=== PATIENT | male | born 1980 | race Caucasian/White ===

== ENCOUNTER 2021-04-24 10:17 | Emergency (ER) | payer BC, SELFPAY ==
[2021-04-24 10:24] VITALS: BP 143/83; PULSE 117; RESP 20; TEMP 37.9; O2SAT 96
--- NOTE | 2021-04-24 10:37 | ED.URI ---
HPI - URI/Sore Throat General Chief Complaint: Upper Respiratory Infection Stated Complaint: congestion upper respiratory History of Present Illness HPI Narrative: This is a 40-year-old male that presents to the urgent care complaining of 2 weeks of cough and congestion with sinus pressure and needing to catch his breath if he goes into these coughing spells. Patient states that he has not had a fever but he is tired and just does not feel good. Related Data Home Medications Medication Instructions Recorded Confirmed losartan 50 mg PO DAILY 04/24/21 04/24/21 Allergies Allergy/AdvReac Type Severity Reaction Status Date / Time No Known Allergies Allergy Unverified 04/24/21 10:32 Review of Systems Review of Systems: CONSTITUTIONAL: Denies fever, chills, or sweats. ENT: Reports rhinorrhea, congestion, sore throat, or otalgia. RESPIRATORY: Reports cough or dyspnea. PMFSH Comments At time as signature, I have reviewed and agree with nursing past medical, social, surgical and family history. Please see nursing chart for further information. There is no relevant family history pertinent to the presenting complaint. Exam Narrative: GENERAL: Ill-appearing, well-nourished, and in no acute distress. HEAD:Normocephalic, atraumatic. EYES: PERRLA ENT: Nares clear, copious rhinorrhea Mucous membranes moist. CHEST: Clear to diminished auscultation. No respiratory distress. HEART: Tachycardic regular rate and rhythm. Normal peripheral pulses. ABDOMEN: Soft, nontender, nondistended, normal active bowel sounds. EXTREMITIES: Normal range of motion. No edema. SKIN: Warm, dry, no rash. NEURO: No focal deficits. Alert and oriented x3. Course Vital Signs Vital signs: Vital Signs Temperature 100.3 F H 04/24/21 10:24 Pulse Rate 117 H 04/24/21 10:24 Respiratory Rate 20 04/24/21 10:24 Blood Pressure 143/83 H 04/24/21 10:24 Pulse Oximetry 96 04/24/21 10:24 Temperature 100.3 F H 04/24/21 10:24 Pulse Rate 117 H 04/24/21 10:24 Respiratory Rate 20 04/24/21 10:24 Blood Pressure 143/83 H 04/24/21 10:24 Pulse Oximetry 96 04/24/21 10:24 MDM - URI/Sore Throat MDM Narrative Medical decision making narrative: negative for covid, negative for influenza Discharge Plan Discharge Clinical Impression: Bronchitis Fever Qualifiers: Fever type: unspecified Qualified Code(s): R50.9 - Fever, unspecified Patient Disposition: Home, Self-Care Condition: Stable Instructions: Antibiotic Form, Fever in Adults (ED), Chronic Bronchitis (ED), Hypertension (ED) Additional Instructions: Your blood pressure was elevated in the clinic today, please follow-up with your regular doctor for further evaluation and monitor for evaluation of hypertension Please [facility] schedule a followup visit with your personal physician with in the next 1-4 weeks for further evaluation and treatment. Also, ask your personal physician to assist you regarding blood pressure. Even blood pressure exceeding 120/80 may indicate pre-hypertension. If your symptoms persist, change or worsen significantly before you can contact your personal physician then please, without delay, go to the emergency department for further evaluation. Prescriptions: New albuterol sulfate 90 mcg/actuation HFA aerosol inhaler 1 inh inhalation QID PRN (Reason: shortness of breath or wheezing) Qty: 8.5 RF: 0 methylprednisolone [Medrol ([place])] 4 mg tablets,dose pack See Rx Instructions .ROUTE .COMPLEX Qty: 21 RF: 0 azithromycin [Zithromax Z-[place]] 250 mg tablet See Rx Instructions .ROUTE .COMPLEX Qty: 6 RF: 0 benzonatate 100 mg capsule 100 mg PO TID PRN (Reason: cough) Qty: 20 RF: 0 No Action losartan 50 mg tablet 50 mg PO DAILY RF: 0 Follow-up/Referrals: Enrique,Camryn Sherman MD [Primary Care Provider] - Stand Alone Forms: Work/School Release IP Time of Disposition: 11:07
== END 2021-04-24 11:10 | disposition home or self-care (01) ==
PROVIDERS: Emergency Provider Nurse Practitioner Family; PCP Family Medicine
DX: J40 Bronchitis, not specified as acute or chronic (principal); R50.9 Fever, unspecified; Z20.822 Contact with and (suspected) exposure to COVID-19; I10 Essential (primary) hypertension
CPT/HCPCS: 87426; 87804; 99203; C9803; G0463

== ENCOUNTER 2022-06-23 12:09 | Emergency (ER) | payer OTHER, SELFPAY ==
--- NOTE | ~2022-06-23 | XR_ITS ---
EXAMINATION: XR chest 2V 06/23/2022 13:13 INDICATION: Covid positive. Sore throat. PROCEDURE: 2 view chest COMPARISON: No prior studies for comparison. FINDINGS: The lungs are clear. The cardiomediastinal silhouette is within normal limits. There are no pleural effusions. There is no pneumothorax suspected. IMPRESSION: 1: NO ACUTE CARDIOPULMONARY DISEASE. Reviewed, dictated and finalized at location B. RAIT PAINTER
[2022-06-23 12:16] VITALS: BP 115/73; PULSE 101; RESP 20; TEMP 37.1; O2SAT 96
--- NOTE | 2022-06-23 13:00 | ED.URI ---
HPI - URI/Sore Throat General Chief Complaint: Upper Respiratory Infection Stated Complaint: Fever/Cough/Sore Throat Source: patient and RN notes reviewed History of Present Illness HPI Narrative: 41-year-old male presents to urgent care with complaints of sore throat, fevers, chills, and productive cough. Patient states 2 weeks ago he tested positive for COVID. Patient states he feels worse now than he did 2 weeks ago. Patient denies any shortness of breath or chest pain. Patient denies any vomiting, diarrhea, abdominal pain. Patient has been alternating ibuprofen and Tylenol for his fevers. Some parts of this dictation were generated by voice recognition software and may contain typographical and/or grammatical inaccuracies. Related Data Home Medications Medication Instructions Recorded Confirmed losartan 50 mg tablet 50 mg PO DAILY 04/24/21 04/24/21 atorvastatin 40 mg tablet mg 06/23/22 dulaglutide 0.75 mg/0.5 mL mg subcut 06/23/22 subcutaneous pen injector (Trulicity) empagliflozin 25 mg tablet mg 06/23/22 (Jardiance) metformin 1,000 mg tablet mg 06/23/22 Allergies Allergy/AdvReac Type Severity Reaction Status Date / Time No Known Allergies Allergy Unverified 04/24/21 10:32 Review of Systems Review of Systems: CONSTITUTIONAL: Reports fever, chills, and sweats. EYES: Denies visual changes, redness, or discharge. ENT: Reports sore throat CARDIOVASCULAR: Denies chest pain, palpitations, or edema. RESPIRATORY: Reports cough. denies dyspnea. GASTROINTESTINAL: Denies abdominal pain, nausea, vomiting, or diarrhea. GENITOURINARY: Denies dysuria or hematuria. SKIN: Denies rash or itching. MUSCULOSKELETAL: Denies back pain, joint pain, or myalgia. NEUROLOGIC: Denies headache, numbness, or weakness. PMFSH Comments At the time of my signature, I reviewed and agree with the nursing past medical, surgical, social, and family history. There is no relevant family history pertinent to the patient complaint. Exam Narrative: GENERAL: This is a well-nourished, well-developed patient, in no apparent distress. HEAD: normocephalic, atraumatic. EYES: PERRL. Sclera clear/white. Vision is grossly intact. EARS: External ears normal, auditory canals clear and without drainage, TMs normal without perforation. Hearing grossly intact. NOSE: External nose normal with no obvious nasal discharge, nares without redness, no rhinorrhea. THROAT: Mucous membranes moist, posterior pharynx clear. NECK: Mild lymphadenopathy CARDIOVASCULAR: Regular rate and rhythm without murmurs, gallops, or rubs. RESPIRATORY: Clear to auscultation. Breath sounds equal bilaterally. No wheezes, rales, or rhonchi. GASTROINTESTINAL: Abdomen soft, non-tender, nondistended. Bowel sounds are active. No hepato-splenomegaly, or palpable masses. No guarding. SKIN: warm, intact with no suspicious lesions or rash, good texture and turgor. NEURO: awake, alert, and oriented to person, place and time. There were no obvious focal neurologic abnormalities. Course Course Level of Care: Express Care Visit Vital Signs Vital signs: Vital Signs Temperature 98.7 F 06/23/22 12:16 Pulse Rate 101 H 06/23/22 12:16 Respiratory Rate 20 06/23/22 12:16 Blood Pressure 115/73 06/23/22 12:16 Pulse Oximetry 96 06/23/22 12:16 Oxygen Delivery Room Air 06/23/22 12:16 Temperature 98.7 F 06/23/22 12:16 Pulse Rate 101 H 06/23/22 12:16 Respiratory Rate 20 06/23/22 12:16 Blood Pressure 115/73 06/23/22 12:16 Pulse Oximetry 96 06/23/22 12:16 Oxygen Delivery Room Air 06/23/22 12:16 Reviewed MDM - URI/Sore Throat MDM Narrative Medical decision making narrative: Rapid strep is negative in the office; however we will send to the lab for confirmation; there is a small percentage chance that it can come back positive; if it is, we will call you in 2-3days; and your prescription will be call in to your pharmacy. However, there is NO indicat
== END 2022-06-23 13:33 | disposition home or self-care (01) ==
PROVIDERS: Emergency Provider Nurse Practitioner Family; PCP Family Medicine
DX: J02.9 Acute pharyngitis, unspecified (principal); B34.9 Viral infection, unspecified
CPT/HCPCS: 71046; 87081; 87880; 99213; G0463

== ENCOUNTER 2023-12-30 15:59 | Emergency (ER) | payer OTHER, SELFPAY ==
[2023-12-30 16:15] VITALS: BP 121/75; PULSE 77; RESP 20; TEMP 36.6; O2SAT 100
[2023-12-30 16:20] VITALS: BP 121/75; PULSE 77; RESP 20; TEMP 36.6; O2SAT 100
--- NOTE | 2023-12-30 16:50 | ED.GENADULT ---
HPI - General Adult General Chief complaint: Weakness Stated complaint: fatigue Time Seen by Provider: 12/30/23 16:32 Source: patient, RN notes reviewed and old records reviewed Mode of arrival: ambulatory Limitations: no limitations History of Present Illness HPI narrative: 43-year-old male to Express Care complaint of fatigue, exhaustion. Patient history of diabetes. Patient states that he is working 72+ hours per week with mandatory overtime and states he physically cannot continue working like this without time to rest. Patient reports no sick symptoms and endorses that I and O remain unchanged. Patient requesting work note so that he can go home and rest. Patient resting comfortably in exam room. Patient appears tired. Respirations even and nonlabored. Patient no acute distress. Related Data Home Medications Medication Instructions Recorded Confirmed losartan 50 mg tablet 50 mg PO DAILY 04/24/21 12/30/23 atorvastatin 40 mg tablet 40 mg PO DAILY 06/23/22 12/30/23 dulaglutide 0.75 mg/0.5 mL See Rx Instructions .Route .COMPLEX 06/23/22 12/30/23 subcutaneous pen injector (Trulicity) empagliflozin 25 mg tablet 25 mg PO DAILY 06/23/22 12/30/23 (Jardiance) Allergies Allergy/AdvReac Type Severity Reaction Status Date / Time No Known Allergies Allergy Unverified 12/30/23 16:09 Review of Systems Review of Systems: All systems reviewed & are unremarkable except as noted in HPI and below Constitutional: Constitutional: Reports as per HPI, Reports daytime sleepiness and Reports fatigue Eyes: Eyes: Reports no additional eye complaints ENT: Reports system reviewed and no additional complaints, except as documented Cardiovascular: Cardiovascular: Reports no additional cardiovascular complaints, Denies chest pain and Denies dyspnea Respiratory: Respiratory: Reports no additional respiratory complaints, Denies cough and Denies dyspnea Musculoskeletal: Musculoskeletal: Reports no additional musculoskeletal complaints Neurologic: Reports system reviewed and no additional complaints, except as documented Psychiatric: Psychiatric: Reports no additional psychiatric complaints PMFSH Comments At the time of my signature, I reviewed and agree with the nursing past medical, surgical, social, and family history. There is no relevant family history pertinent to the patient complaint. Exam Const: General: cooperative, healthy appearing, comfortable, no acute distress, alert, tired appearing and well nourished Nutritional Appearance: well nourished Orientation/consciousness: patient oriented x3 Limitations: no limitations HENMT: Head: normal to inspection Ears: external ears normal Face/Nose/Sinus: Normal external nose present, Normal nares present, normal facial exam, No erythema and No edema Face and sinus: normal facial exam, no erythema and no edema Mouth: Yes Normal oral and palatal mucosa present Eyes: General: appearance normal, both eyes and all related structures Neck: Neck: normal visual inspection, full ROM and no meningeal signs Lymphatic: no lymphadenopathy noted and no lymphedema noted Chest: Chest palpation & inspection: normal inspection of the chest Resp: Effort & Inspection: normal respiratory effort and able to speak in complete sentences Auscultation: clear to auscultation bilaterally Cardio: Jugular venous distension: no JVD Rate: regular rate Rhythm: regular rhythm Back/Spine/Pelvis: Cervical Spine: cervical ROM normal Skin: General skin exam: normal color, no rashes or lesions noted and turgor normal Neuro: General: patient oriented x3, gait normal, moves all extremities and no meningeal signs Speech: normal speech Gait exam (Neuro): Normal gait present Extrem: General: normal to inspection, full ROM and capillary refill normal Psych: Appearance: grossly normal and well kempt Course Course Emergency Course: Some parts of this dictation were generated by [employer]
== END 2023-12-30 17:05 | disposition home or self-care (01) ==
PROVIDERS: Emergency Provider Nurse Practitioner Family; PCP Nurse Practitioner Family
DX: R53.83 Other fatigue (principal); E78.00 Pure hypercholesterolemia, unspecified; I10 Essential (primary) hypertension; E11.9 Type 2 diabetes mellitus without complications
CPT/HCPCS: 99211; G0463

== ENCOUNTER 2024-05-31 09:19 | Outpatient (CLI) | payer OTHER, SELFPAY ==
--- OUTSIDE RECORDS SUMMARY | 2024-05-31 09:44 | XMS_ITS | Referral Summary ---
Author Organization [facility] [address] [facility] Address [address] [facility] [place] [address] Care Team Providers Care Feather Renovator Name Role Phone Camryn Nunez MD Primary Care Provider + Allergies No known active allergies Medications losartan (COZAAR) 50 mg tablet Take 50 mg by mouth daily 01/31/2022 Active atorvastatin (LIPITOR) 40 mg tablet Take 40 mg by mouth daily 04/07/2022 Active metFORMIN (GLUCOPHAGE) 1,000 mg tablet Take 1,000 mg by mouth 2 (two) times a day 04/07/2022 Active Active Problems No known active problems Social History Tobacco Use Types Packs/Day Years Used Date Smoking Tobacco: Never Assessed Sex and Gender Information Value Date Recorded Sex Assigned at Not on file Legal Sex Male 8:11 AM PANEL LAMINATOR Gender Identity Not on file Sexual Orientation Not on file Last Filed Vital Signs Vital Sign Reading Time Taken Comments Blood Pressure 126/76 05/06/2022 6:19 PM PANEL LAMINATOR Pulse 102 05/06/2022 6:19 PM PANEL LAMINATOR Temperature 36.8 ??C (98.3 ??F) 05/06/2022 6:19 PM CS T Respiratory Rate 16 05/06/2022 6:19 PM PANEL LAMINATOR Oxygen Saturation 98% 05/06/2022 6:19 PM PANEL LAMINATOR Inhaled Oxygen Concentration - - Weight 114.7 kg (252 lb 12.8 oz) 05/06/2022 6:19 PM PANEL LAMINATOR Height 180.3 cm (5' 11 ) 05/06/2022 6:19 PM PANEL LAMINATOR Body Mass Index 35.26 05/06/2022 6:19 PM PANEL LAMINATOR Plan of Treatment Not on file Insurance [employer] Member Subscriber Plan / Payer (Ef fective 2022-Present) Name:Willi Harman Relation to Subscriber:Spouse Name:SPENSER HARMAN Date of :1982 (Home) Address: [address] [place] [address] Payer ID:[id number] (NAIC) Type:[employer] H[employer]/PPO Address: [place] [id number] [employer] Member Subscriber Plan / Payer (Ef fective 2022-Present) Name:Willi Harman Relation to Subscriber:Spouse Name:SPENSER HARMAN Date of :1982 (Home) Address: [address] [place] [address] Payer ID:[id number] (NAIC) Type:[employer]/PPO Address: [place] [phone] Care Teams Feather Renovator Relationship Specialty Start Date End Date Camryn Nunez MD [address] [place] [address] DR TIAN [address] [place] [id number] PCP - General Family Medicine 05/06/22
--- OUTSIDE RECORDS SUMMARY | 2024-05-31 09:44 | XMS_ITS | Patient Health Summary ---
Author Organization [facility] Address [address] [place] [address] Care Team Providers Care Heart Specialist Name Role Phone Cesar Wagoner MD Primary Care Provider Note from [facility],non-owned Affiliates and Associated Physician Practices is amultiple site organization consisting of ambulatory clinics and hospital sitesin [place], [place], [place] and [place]. This disclosure is being madepursuant to the Care Everywhere program and may not contain all information available regarding this patient. Last updated 18.[facility] Allergies No known active allergies Medications * Be aware that medications may not be up to date on this document. Alwaysverify current medications with the patient. * amoxicillin-clavulanate (AUGMENTIN) 875-125 MG tablet(Started 07/30/2013) Take 1 Tab by mouth every 12 hours. * oxyCODONE-acetaminophen (PERCOCET) 5-325 MG tablet(Started 07/30/2013) Take 1 Tab by mouth every 4 hours as needed for Pain. Immunizations * TDAP (7yrs+)(Given 07/30/2013) Social History Tobacco Use Types Packs/Day Years Used Date Smoking Tobacco: Never Alcohol Use Standard Drinks/Week Comments No 0 (1 standard drink = 0.6 oz pur e alcohol) Sex and Gender Information Value Date Recorded Sex Assigned at Not on file Gender Identity Not on file Sexual Orientation Not on file Last Filed Vital Signs Vital Sign Reading Time Taken Comments Blood Pressure 128/98 07/31/2013 12:00 AM CDT Pulse 98 07/31/2013 12:00 AM CDT Temperature 36.7 ??C (98 ??F) 07/31/2013 12:00 AM CDT Respiratory Rate 18 07/31/2013 12:00 AM CDT Oxygen Saturation 100% 07/31/2013 12:00 AM CDT Inhaled Oxygen Concentration - - Weight 102.1 kg (225 lb) 07/30/2013 8:59 PM CDT Height 182.9 cm (6') 07/30/2013 8:59 PM CDT Body Mass Index 30.52 07/30/2013 8:59 PM CDT Care Teams Heart Specialist Relationship Specialty Start Date End Date Cesar Wagoner MD [address] [place] [address] PCP - General Family Medicine 07/30/13
--- OUTSIDE RECORDS SUMMARY | 2024-05-31 09:44 | XMS_ITS | Clinical Summary ---
Author Organization [facility] Address [address] [place] [address] Care Team Providers Care Executive Officer Special Warfare Team Name Role Phone Cesar Wagoner MD Primary Care Provider [phone] Source Comments [facility],non-owned Affiliates and Associated Physician Practices is amultiple site organization consisting of ambulatory clinics and hospital sitesin [place], [place], [place] and [place]. This disclosure is being madepursuant to the Care Everywhere program and may not contain all information available regarding this patient. Last updated 18.[facility] Lorena Gaxiola Allergies No known active allergies Medications * Be aware that medications may not be up to date on this document. Alwaysverify current medications with the patient. Medication Sig Dispensed Refills Start Date End Date Status amoxicillin-clavulanat e (AUGMENTIN) 875-125 MG tablet Take 1 Tab by mouth every 12 hours. 14 Tab 0 07/30/2013 Active oxyCODONE-acetaminophe n (PERCOCET) 5-325 MG tablet Take 1 Tab by mouth every 4 hours as needed for Pain. 15 Tab 0 07/30/2013 Active Immunizations Name Administration Dates Next Due TDAP (7yrs+) 07/30/2013 Social History Tobacco Use Types Packs/Day Years [...] Mass Index 30.52 07/30/2013 8:59 PM CDT Plan of Treatment Health Maintenance Due Date Last Done Comments LIPID TESTING 1980 HIV SCREENING 12/05/1995 HEPATITIS C SCREENING 11/30/1998 HEPATITIS B VACCINE (1 of 3 - 19+ 3-dose series) 12/05/1999 DTAP/TDAP/TD VACCINES (2 - T d or Tdap) 07/31/2023 07/30/2013 COVID-19 VACCINE (1 - 2023-2 5 season) 2024 INFLUENZA VACCINE (#1) 2024 DEPRESSION SCREENING 05/04/2024 ZOSTER VACCINE (1 of 2) 2030 HIB VACCINE Aged Out No longer eligi ble based on patient's age to complete this topic HPV VACCINE Aged Out No longer eligi ble based on patient's age to complete this topic MENINGOCOCCAL (Group B) VACCINE Aged Out No longer eligible based on patient's age to complete this topic MENINGOCOCCAL VACCINE Aged Out No aníbal marcello eligible based on patient's age to complete this topic PNEUMOCOCCAL VACCINE Aged Out No long er eligible based on patient's age to complete this topic Care Teams Executive Officer Special Warfare Team Relationship Specialty Start Date End Date Cesar Wagoner MD [address] [place] [address] PCP - General Family Medicine 07/30/13
--- OUTSIDE RECORDS SUMMARY | 2024-05-31 09:44 | XMS_ITS | Clinical Summary ---
Author Organization [facility] Address [address] [place] [address] Phone Care Team Providers Care Lab Aid Name Role Phone Camryn Nunez MD Primary Care Provider + Allergies No known active allergies Medications No known medications Active Problems No known active problems Social History Tobacco Use Types Packs/Day Years Used Date Smoking Tobacco: Never Assessed Sex and Gender Information Value Date Recorded Sex Assigned at Not on file Legal Sex Male 8:55 PM CDT Gender Identity Not on file Sexual Orientation Not on file Plan of Treatment Health Maintenance Due Date Last Done Comments Hepatitis C Virus (HCV) Screening 1980 TdaP Immunization 1980 Hepatitis B Immunization (1 of 3 - 19+ 3-dose series) 12/05/1999 Influenza Immunization (#1) 2024 SARS-COV-2 Immunization ( season) 2024 Respiratory Syncytial Virus (RSV) Immunization (Adult) (1 - 1-dose 75+ series) 12/05/2055 Meningococcal Immunization (ACWY) Aged Out No longer eligible based on patient's age to complete this topic Pneumococcal Immunization Combined Aged Out No longer eligible based on patient's age to complete this topic Rotavirus Immunization Aged Out No lo nger eligible based on patient's age to complete this topic Insurance [employer] Care Teams Lab Aid Relationship Specialty Start Date End Date Camryn Nunez MD [address] [place] [id number] PCP - General Family Medicine 04/26/15
--- OUTSIDE RECORDS SUMMARY | 2024-05-31 09:44 | XMS_ITS | Clinical Summary ---
Author Organization [facility] [address] [facility] Address [address] [place] [facility] [place] [address] Care Team Providers Care Improvement Leader Name Role Phone Camryn Nunez MD Primary [...] on file Legal Sex Male 8:11 AM RN PICU Gender Identity Not on file Sexual Orientation Not on file Obstetrics History Last Filed Vital Signs Vital Sign Reading Time Taken Comments Blood Pressure 126/76 05/06/2022 6:19 PM RN PICU Pulse 102 05/06/2022 6:19 PM RN PICU Temperature 36.8 ??C (98.3 ??F) 05/06/2022 6:19 PM CS T Respiratory Rate 16 05/06/2022 6:19 PM RN PICU Oxygen Saturation 98% 05/06/2022 6:19 PM RN PICU Inhaled Oxygen Concentration - - Weight 114.7 kg (252 lb 12.8 oz) 05/06/2022 6:19 PM RN PICU Height 180.3 cm (5' 11 ) 05/06/2022 6:19 PM RN PICU Body Mass Index 35.26 05/06/2022 6:19 PM RN PICU Plan of Treatment Health Maintenance Due Date Last Done Comments Depression Screening 1980 Hepatitis C Screening 1980 Varicella Vaccines (1 of 2 - 13+ 2-dose series) 1993 Hepatitis B Screening 1998 Regular Well Visit/Exam 18-64 1998 Covid-19 Vaccine (3 - 2023- season) 2024 06/14/2021, 07/09/2020 Influenza Vaccine (#1) 2024 , 02/24/2020, 02/24/2020, Additional history exists DTaP/Tdap/Td Vaccine (3 - Td or Tdap) 12/22/2030 12/22/2020, 07/30/2013 HPV Vaccines Aged Out No longer eligi ble based on patient's age to complete this topic Pneumococcal vaccine <65 Aged Out No longer eligible based on patient's age to complete this topic Insurance [facility] [employer] [employer] Care Teams Improvement Leader Relationship Specialty Start Date End Date Camryn Nunez MD [address] [address] PCP - General Family Medicine 05/06/22
--- OUTSIDE RECORDS SUMMARY | 2024-05-31 09:44 | XMS_ITS | Clinical Summary ---
Author Organization [facility] Address [address] [place] [address] Phone Care Team Providers Care Forging Press Lever Tender Name Role Phone Camryn Nunez MD Primary Care Provider + Allergies No known active allergies Medications LISINOPRIL ORAL Take 50 mg by mouth daily. Active Immunizations Immunization Administration Dates Next Due (ADACEL/BOOSTRIX)(10 YR UP) TDAP VACCINE, 0.5ML, IM 12/22/2020 Social History Tobacco Use Types Packs/Day Years Used Date Smoking Tobacco: Never Smokeless Tobacco: Never Alcohol Use Standard Drinks/Week Comments Not Currently 0 (1 standard drink = 0.6 oz pur e alcohol) Sex and Gender Information Value Date Recorded Sex Assigned at Not on file Legal Sex Male 1:37 PM CDT Gender Identity Not on file Sexual Orientation Not on file Last Filed Vital Signs Vital Sign Reading Time Taken Comments Blood Pressure 117/66 12/22/2020 3:31 PM CDT Pulse - - Temperature 36.6 ??C (97.8 ??F) 12/22/2020 1:44 PM CD T Respiratory Rate 15 12/22/2020 3:31 PM CDT Oxygen Saturation 94% 12/22/2020 3:31 PM CDT Inhaled Oxygen Concentration - - Weight 113.9 kg (251 lb) 12/22/2020 1:44 PM CDT Height 180.3 cm (5' 11 ) 12/22/2020 1:44 PM CDT Body Mass Index 35.01 12/22/2020 1:44 PM CDT Plan of Treatment Health Maintenance Due Date Last Done Comments HEPATITIS B VACCINES (1 of 3 - 19+ 3-dose series) 12/05/1999 INFLUENZA VACCINE (#1) 2023 , 02/05/2018 DTAP/TDAP/TD VACCINES (3 - T d or Tdap) 12/22/2030 12/22/2020, 07/30/2013 HPV VACCINES Aged Out No longer eligi ble based on patient's age to complete this topic PNEUMOCOCCAL VACCINE 0-64 YEARS Aged Out No longer eligible b ased on patient's age to complete this topic [place] [address] [employer] Care Teams Forging Press Lever Tender Relationship Specialty Start Date End Date Camryn Nunez MD [address] [place] [phone] PCP - General Family Practice 12/22/20
--- OUTSIDE RECORDS SUMMARY | 2024-05-31 09:44 | XMS_ITS | Referral Summary ---
Author Organization [facility] Address [address] [place] [address] Care Team Providers Care System Configuration Specialist Name Role Phone Cesar Wagoner MD Primary Care Provider [phone] Source Comments [facility],non-owned Affiliates and Associated Physician Practices is amultiple site organization consisting of ambulatory clinics and hospital sitesin [place], [place], [place] and [place]. This disclosure is being madepursuant to the Care Everywhere program and may not contain all information available regarding this patient. Last updated 18.[facility] [employer] Allergies No known active allergies Medications * [...] 07/30/2013 8:59 PM CDT Plan of Treatment Not on file Care Teams System Configuration Specialist Relationship Specialty Start Date End Date Cesar Wagoner MD [address] [place] [address] PCP - General Family Medicine 07/30/13
[2024-05-31 19:40] LABS: Hematocrit 55.5 % (42.0-52.0); Hemoglobin 17.9 g/dL (14.0-18.0); Mean Corpuscular HGB Conc 32.3 g/dl (32-36); Mean Corpuscular Hemoglobin 28.9 pg (26-34); Mean Corpuscular Volume 89.7 fl (80-100); Mean Platelet Volume 11.4 fl (7.4-10.4); Platelet Count Result 201 k/mm3 (150-375); Red Blood Count 6.19 M/mm3 (4.6-6.20); Red Cell Distribution Width 13.8 % (11.5-14.5); White Blood Count 10.4 K/mm3 (4.5-10.0)
[2024-05-31 20:57] LABS: Hemoglobin A1C 6.3 % (<5.7)
[2024-05-31 21:26] LABS: Vitamin D 25 Hydroxy 49.3 ng/mL
[2024-05-31 23:06] LABS: Alanine Aminotransferase 31 U/L (6-50); Albumin Level 4.8 g/dL (3.5-5.1); Alkaline Phosphatase 116 U/L (38-126); Anion Gap 13 mmol/L (4-12); Aspartate Amino Transferase 33 U/L (17-59); Bilirubin,Total 0.8 mg/dL (0.2-1.3); Blood Urea Nitrogen 20 mg/dL (9-20); Calcium 10.1 mg/dL (8.4-10.2); Carbon Dioxide 26 mmol/L (22-30); Chloride 103 mmol/L (98-107); Cholesterol 178 mg/dL (0-200); Estimated Glomerular Filt Rate > 60; Glucose 100 mg/dL (65-110); HDL Direct 51 mg/dL; Potassium 4.4 mmol/L (3.4-5.0); Sodium 142 mmol/L (137-145); Triglycerides 280 mg/dL (<150)
[2024-05-31 23:07] LABS: Creatinine Urine 65.6 mg/dL
[2024-05-31 23:11] LABS: MALB Creatinine Ratio 20.1 mg/g (0-30); Microalbumin Urine Random 13.2 mg/L (0-16.7)
[2024-05-31 23:17] LABS: LDL Cholesterol Direct 80 mg/dL
== END 2024-05-31 09:20 | disposition home or self-care (01) ==
PROVIDERS: PCP Nurse Practitioner Adult Health; Visit Provider Nurse Practitioner Adult Health
DX: R79.89 Other specified abnormal findings of blood chemistry (principal); E11.9 Type 2 diabetes mellitus without complications; I10 Essential (primary) hypertension; E55.9 Vitamin D deficiency, unspecified
CPT/HCPCS: 36415; 80053; 80061; 82043; 82306; 82565; 83036; 84402; 84403; 85027

== ENCOUNTER 2024-09-09 08:26 | Emergency (ER) | payer OTHER, SELFPAY ==
--- OUTSIDE RECORDS SUMMARY | 2024-09-09 08:28 | XMS_ITS | Clinical Summary ---
Author Organization [facility] Address [address] [place] [address] Care Team Providers Care Coat Finisher Name Role Phone Cesar Wagoner MD Primary Care Provider [phone] Source Comments [facility],non-owned Affiliates and Associated Physician Practices is amultiple site organization consisting of ambulatory clinics and hospital sitesin [place], [place], [place] and [place]. This disclosure is being madepursuant to the Care Everywhere program and may not contain all information available regarding this patient. Last updated 18.[facility] Allergies No known active allergies Medications * Be aware that medications may not be up to date on this document. Alwaysverify current medications with the patient. amoxicillin-clav ulanate (AUGMENTIN) 875-125 MG tablet Take 1 Tab by mouth every 12 hours. 14 Tab 0 07/30/2013 Active oxyCODONE-acetam inophen (PERCOCET) 5-325 MG tablet Take 1 Tab by mouth every 4 hours as needed for Pain. 15 Tab 0 07/30/2013 Active Immunizations Immunization Administration Dates Next Due TDAP (7yrs+) 07/30/2013 Social History Tobacco Use Types Packs/Day Years Used Date Smoking Tobacco: Never Alcohol Use Standard Drinks/Week Comments No 0 (1 standard drink = 0.6 oz pur e alcohol) Sex and Gender Information Value Date Recorded Sex Assigned at Not on file Legal Sex Male 8:38 PM CDT Gender Identity Not on file Sexual Orientation Not on file Last Filed Vital Signs Vital Sign Reading Time Taken Comments Blood Pressure 128/98 07/31/2013 12:00 AM CDT Pulse 98 07/31/2013 12:00 AM CDT Temperature 36.7 C (98 F) 07/31/2013 12:00 AM CDT Respiratory Rate 18 [...] d or Tdap) 07/31/2023 07/30/2013 COVID-19 VACCINE ( - 2023-2 5 season) 2024 DEPRESSION SCREENING 05/04/2024 INFLUENZA VACCINE (Season Ended) 2025 ZOSTER VACCINE (1 of 2) 2030 HIB VACCINE Aged Out No longer eligi ble based on patient's age to complete this topic HPV VACCINE Aged Out No longer eligi ble based on patient's age to complete this topic MENINGOCOCCAL (Group B) VACC INE SHARED DECISION-MAKING Aged Out No longer eligibl e based on patient's age to complete this topic MENINGOCOCCAL GROUPS A/C/Y/W VACCINE Aged Out No longer eligible b ased on patient's age to complete this topic PNEUMOCOCCAL VACCINE Aged Out No long er eligible based on patient's age to complete this topic Insurance [employer] Care Teams Coat Finisher Relationship Specialty Start Date End Date Cesar Wagoner MD [address] [place] [id number] PCP - General Family Medicine 07/30/13
--- OUTSIDE RECORDS SUMMARY | 2024-09-09 08:28 | XMS_ITS | Clinical Summary ---
Author Organization [facility] Address [address] [place] [address] Phone Care Team Providers Care Tea Bag Packer Name Role Phone Camryn Nunez MD Primary [...] PM CDT Pulse - - Temperature 36.6 C (97.8 F) 12/22/2020 1:44 PM CDT Respiratory Rate 15 12/22/2020 3:31 PM CDT [...] 3-dose series) 12/05/1999 INFLUENZA VACCINE (#1) 2023 0, 02/05/2018 DTAP/TDAP/TD VACCINES (3 - Td or Tdap) 12/22/2030 12/22/2020, 07/30/2013 HPV VACCINES Aged Out No longer eligi ble based on patient's age to complete this topic Insurance [facility] BL[facility] ACCESS CHOICE Care Teams Tea Bag Packer Relationship Specialty Start Date End Date Camryn Nunez MD [address] [place] [address] [place] [address] PCP - General Family Practice 12/22/20
--- OUTSIDE RECORDS SUMMARY | 2024-09-09 08:28 | XMS_ITS | Clinical Summary ---
Author Organization [facility] Address [address] [place] [address] Phone Care Team Providers Care Relocation Associate Name Role Phone Camryn Nunez MD Primary [...] patient's age to complete this topic Insurance [facility] Care Teams Relocation Associate Relationship Specialty Start Date End Date Camryn Nunez MD [address] [place] [id number] PCP - General Family Medicine 04/26/15
--- OUTSIDE RECORDS SUMMARY | 2024-09-09 08:28 | XMS_ITS | Referral Summary ---
Author Organization [facility] [address] [facility] [address] Address [address] [place] [address] Care Team Providers Care Computer Repair Engineer Name Role Phone Camryn Nunez MD Primary [...] on file Legal Sex Male 8:11 AM COOK ROOM SUPERVISOR Gender Identity Not on file Sexual Orientation Not on file Last Filed Vital Signs Vital Sign Reading Time Taken Comments Blood Pressure 126/76 05/06/2022 6:19 PM COOK ROOM SUPERVISOR Pulse 102 05/06/2022 6:19 PM COOK ROOM SUPERVISOR Temperature 36.8 C (98.3 F) 05/06/2022 6:19 PM COOK ROOM SUPERVISOR Respiratory Rate 16 05/06/2022 6:19 PM COOK ROOM SUPERVISOR Oxygen Saturation 98% 05/06/2022 6:19 PM COOK ROOM SUPERVISOR Inhaled Oxygen Concentration - - Weight 114.7 kg (252 lb 12.8 oz) 05/06/2022 6:19 PM COOK ROOM SUPERVISOR Height 180.3 cm (5' 11 ) 05/06/2022 6:19 PM COOK ROOM SUPERVISOR Body Mass Index 35.26 05/06/2022 6:19 PM COOK ROOM SUPERVISOR Plan of Treatment Not on file Insurance [facility] [employer] [place] [id number] Care Teams Computer Repair Engineer Relationship Specialty Start Date End Date Camryn Nunez MD [address] [place] [address] [address] [place] [id number] PCP - General Family Medicine 05/06/22
--- OUTSIDE RECORDS SUMMARY | 2024-09-09 08:28 | XMS_ITS | Data Portability ---
Author Organization [facility], Main Office Address [address] [place] [address] Assessment No assessment recorded. Plan of Treatment Reminders Order Date Submit Date Provider Last Modified By Organization Details Last Modified Time Details Appointments None recorded. Lab vitamin D, 25-hydroxy, total, serum 2023 024 [facility] (Lab), [address] [place], [address], 4 03:08:27 vitamin B12 + folate, serum or blood 2023 024 [facility] (Lab), [address] [place], [address], 4 03:08:25 testosteron e, total, serum 2023 024 [facility] (Lab), [address] [place], [address], 4 03:08:28 glycohemogl obin, total, blood 2023 024 [facility] (Lab), [address] [place], [address], 4 16:46:41 HbA1c (hemoglobin A1c), blood 2022 023 [email or web address] [facility], [address], [place], [address], 3 08:07:44 Referral None recorded. Procedures None recorded. Surgeries None recorded. Imaging None recorded. Medication Orders Vitamin D3 50 mcg (2,000 unit) capsule 2023 [facility], [address] [place] [address], [address], 4 15:40:26 Trulicity 1.5 mg/0.5 mL subcutaneou s pen injector 2023 024 [facility], [address] [place], [address], 4 15:40:25 testosteron e cypionate 200 mg/mL intramuscul ar oil 2023 024 [facility], [address] [place] [address], [address], 4 15:40:27 Trulicity 1.5 mg/0.5 mL subcutaneou s pen injector 2023 024 [facility], [address] [place] [address], [address], 4 12:36:33 Ozempic 0.25 mg or 0.5 mg (2 mg/1.5 mL) subcutaneou s pen injector 2022 023 [email or web address] [facility], [address] [place] [address], [address], 4 17:35:03 Patient TargetsNo targets recorded. Patient InstructionsNo instructions recorded. Reason for Referral None Reported. Results Created Date Observation Date Name Description Value Unit Range Abnormal Flag Note LastModifiedBy Organization Detail LastModifiedTime 08/16/19 23 08/16/2022 HEMOG LOBIN A1C hemoglobin A1C 6.3 %_of_ total _HGB <5.7 high For someo ne witho ut known diabe calli, a hemog lobin A1c value betwe en 5.7% and 6.4% is consi stent with predi abete s and shoul d be confi rmed with a follo w-up test. For someo ne with known diabe calli, a value <7% indic ates that their diabe calli is well contr olled . A1c targe ts shoul d be indiv idual ized based on durat ion of diabe calli, age, comor bid condi tions , and other consi derat ions. This assay resul t is consi stent with an incre ased risk of diabe calli. Curre ntly, no conse nsus exist s regar ding use of hemog lobin A1c for diagn osis of diabe calli for child yazmin. Not Available [employer] [facility] [address] [place], [address], 08/16/2022 02:39:36 08/06/19 24 08/07/2023 VITAM IN B12 AND FOLAT E vitamin B12 438 pg/mL 232-12 45 Not Available [facility] ([facility]) [address] [facility], [place], [address], 08/13/2023 03:08:25 08/06/19 24 08/07/2023 VITAM IN B12 AND FOLAT E folate (folic acid), serum 7.7 NG/mL >3.0 A serum folat e rizwan ntrat ion of less than 3.1 ng/mL is consi dered to repre sent clini durga defic iency . Not Available [facility] ([facility]) [address] [facility], [place], [address], 08/13/2023 03:08:25 08/06/19 24 08/07/2023 HEMOG LOBIN A1C hemoglobin A1C 8.7 % 4.8-5. 6 above high normal Predi abete s: 5.7 - 6.4 Diabe calli: >6.4 Glyce cherie contr ol for adult s with diabe calli: <7.0 Not Available [facility] ([facility]) [address] [facility], [place], [address], 08/13/2023 03:08:26 08/06/19 24 08/07/2023 VITAM IN D, 25-HY DROXY vitamin D, 25-hydroxy 10.0 NG/mL 30.0-1 00.0 below low normal Vitam in D defic iency has been defin ed by the Insti tute of Medic ine and an Endoc rine Socie ty pract ice guide line as a level of serum 25-OH vitam in D less than 20 ng/mL (1,2) . The Endoc rine Socie ty went on to furth er defin e vitam in D insuf ficie ncy as a level betwe en 21 and 29 ng/mL (2). 1. IOM (Inst itute of Medic ine). 2009. Dieta ry refer ence intak es for calci um and D. Sakshi villarreal [place]: The [facility] . 2. Keena milton MF, Fátima krishnamurthy [place], Bebeto off-F errar i BEAR, et al. Evalu ation , treat ment, and preve ntion of vitam in D defic iency : an Endoc rine Socie ty clini durga pract ice guide line. JCEM. 2010; 96(7) :1911 -30. Not Available [facility] ([facility]) [address] [facility], [place], [address], 08/13/2023 03:08:27 08/06/19 24 08/12/2023 TESTO STERO NE, TOTAL , LC/MS testosterone , total, lc/MS 230 NG/dL below low normal This test was devel oped and its perfo rmanc e brigette cteri stics deter mined by [facility]. It has not been clear ed or appro ivonne by the Food and Drug Admin istra tion. Refer ence Range : Adult Males >18 years 264 - 916 This [facility] rp LC/MS -MS metho d is curre ntly certi fied by the CDC Hormo ne Stand ardiz ation Progr am (HoST ). Adult male refer ence inter leo is based on a popul ation of healt hy nonob usman males (BMI <3 0) betwe en 19 and 39 years old. Barbara giron et.al . JCEM 2017, 102;1 161-1 173 PMID: 11047 103. Not Available [employer] [facility] [address] [facility], [place], [address], 08/13/2023 03:08:28 02/24/2002/25/2024 HEMOG LOBIN A1C hemoglobin A1C 8.6 % 4.8-5. 6 above high normal Predi abete s: 5.7 - 6.4 Diabe calli: >6.4 Glyce cherie contr ol for adult s with diabe calli: <7.0 Not Available [facility] ([facility]) [address] [facility], [place], [address], 02/25/2024 10:37:05 02/24/2002/25/2024 TESTO STERO NE testosterone 243 NG/dL 264-91 6 below low normal Adult male refer ence inter leo is based on a popul ation of healt hy nonob usman males (BMI <30) betwe en 19 and 39 years old. Barbara giron et.al . JCEM 2017, 102;1 161-1 173. PMID: 35777 103. Not Available [facility] ([facility]) [address] [facility], [place], [address], 02/25/2024 10:37:06 Result Notes None recorded. Problems Name Problem SNOMED Code Status Onset Date Resolution Date Notes Provider Name and Address Organization Details Recorded Time Bipolar disorder 34872980 Active Not Available [facility] 3 16:59:10 Headache 10179967 Active Not Available [facility] 3 16:59:11 Increased liver function 63070004 Active Not Available [employer] 3 16:59:11 Hyperglycemia 01924850 Active Not Available [facility] 3 16:59:11 Diabetes mellitus 16806143 Active 2022 ROSAMARIA Franklin [address] [facility], [facility] [address], [place], [address] , [facility] [employer] [facility] 3 08:41:53 Testosterone level below reference range 926884045 Active 2023 MANASA [facility]inoP[facility] [address], [place], [address] , [employer] 4 15:19:25 Vitamin D deficiency 95117621 Active 2023 MANASA AndinoP-C [address], [address], [place], [address] , [employer] 4 15:20:28 Male hypogonadism 02478492 Active 2023 MANASA AndinoP[facility] [address] [facility], [facility] [address], [place], [address] , [employer] 4 16:05:56 Problem Notes None recorded. Procedures Surgical History Date Name Laterality Status Provider Name and Address Organization Details Recorded Time excision of ganglion cyst completed Not Available [facility] 07/02/2022 16:57:30 Imaging Results None recorded. Procedure Notes None recorded. Medical Equipment None Reported. Allergies No known drug allergies Medications Name Sig Start Date Stop Date Status Note LastModified by Organization Details LastModified Time Prescriptio n - Prior Authorizati on Request active Not Available Not Available N ot Available losartan 50 mg tablet Take 1 tablet by mouth once daily active Not Available Not Available No t Available atorvastati n 40 mg tablet Take 1 tablet by mouth once daily active Not Available Not Available No t Available promethazin e-DM 6.25 mg-15 mg/5 mL oral syrup Take 5 mL every 4 hours by oral route as needed for 7 days. 12/10 completed Not Available Not Available Not Available venlafaxine ER 37.5 mg capsule,ext ended release 24 hr TAKE 1 CAPSULE BY MOUTH EVERY DAY 12/10 completed Not Available Not Available Not Available venlafaxine ER 75 mg capsule,ext ended release 24 hr 01/15 completed Not Available Not Available Not Available doxycycline hyclate 100 mg capsule Take 1 capsule twice a day by oral route for 7 days. active Not Available Not Available No t Available azithromyci n 250 mg tablet TAKE 2 TABLETS (500 MG) BY ORAL ROUTE ONCE DAILY FOR 1 DAY THEN 1 TABLET (250 MG) BY ORAL ROUTE ONCE DAILY FOR 4 DAYS 08/22 completed Not Available Not Available Not Available benzonatate 200 mg capsule Take 1 capsule 3 times a day by oral route as needed. active Not Available Not Available No t Available hydrocodone 5 mg-acetamin ophen 325 mg tablet 01/17 completed Not Available Not Available Not Available prednisone 20 mg tablet Take 2 tablets every day by oral route for 5 days with food in AM active Not Available Not Available No t Available olanzapine 5 mg tablet TAKE 1 TABLET BY MOUTH EVERY DAY 12/10 completed Not Available Not Available Not Available penicillin V potassium 500 mg tablet TAKE 1 TABLET BY MOUTH THREE TIMES DAILY 05/23 completed Not Available Not Available Not Available sulfamethox azole 800 mg-trimetho prim 160 mg tablet TAKE 1 TABLET BY MOUTH TWICE DAILY FOR 10 DAYS 05/23 completed Not Available Not Available Not Available tramadol 50 mg tablet Take 1 tablet 3 times a day by oral route for 10 days. 10/12 completed Not Available Not Available Not Available oxycodone-a cetaminophe n 5 mg-325 mg tablet 08/10 completed Not Available Not Available Not Available amoxicillin 875 mg tablet Take 1 tablet every 12 hours by oral route for 10 days. active Not Available Not Available No t Available Deep Sea Nasal 0.65 % spray aerosol USE 2 SPRAYS NASALLY PRN FOR 15 DAYS 12/10 completed Not Available Not Available Not Available methocarbam ol 750 mg tablet Take 1 tablet 3 times a day by oral route. active Not Available Not Available No t Available benzonatate 100 mg capsule TAKE 1 CAPSULE BY MOUTH THREE TIMES DAILY NEEDED FOR COUGH 05/23 completed Not Available Not Available Not Available cephalexin 500 mg capsule TAKE 1 CAPSULE BY MOUTH THREE TIMES DAILY FOR 10 DAYS 05/23 completed Not Available Not Available Not Available metformin 1,000 mg tablet TAKE 1 TABLET BY MOUTH TWICE DAILY active Not Available Not Available No t Available divalproex ER 500 mg tablet,exte nded release 24 hr 08/10 completed Not Available Not Available Not Available losartan 25 mg tablet TAKE 1 TABLET BY MOUTH EVERY DAY 12/10 completed Not Available Not Available Not Available BD Luer-Mae Syringe 3 mL 25 gauge x 1 active Not Available Not Available Not Available gabapentin 300 mg capsule Take 1 capsule twice a day by oral route for 30 days. active Not Available Not Available No t Available diclofenac sodium 75 mg tablet,filomena yed release Take 1 tablet twice a day by oral route for 15 days. active Not Available Not Available No t Available codeine 10 mg-guaifene sin 100 mg/5 mL oral liquid TAKE 10 ML BY MOUTH EVERY 6 TO 8 HOURS NEEDED active Not Available Not Available No t Available testosteron e cypionate 200 mg/mL intramuscul ar oil Inject by intramusc ular route for 28 days. active Not Available Not Available No t Available methylpredn isolone 4 mg tablets in a dose pack FOLLOW PACKAGE DIRECTION S 05/23 completed Not Available Not Available Not Available albuterol sulfate HFA 90 mcg/actuati on aerosol inhaler INHALE 2 PUFFS BY MOUTH EVERY 4 TO 6 HOURS NEEDED active Not Available Not Available No t Available amoxicillin 875 mg-potassiu m clavulanate 125 mg tablet TAKE 1 TABLET BY MOUTH TWICE DAILY WITH FOOD FOR 7 DAYS active Not Available Not Available No t Available aripiprazol e 10 mg tablet TAKE 1 TABLET BY MOUTH DAILY 01/22 completed Not Available Not Available Not Available aripiprazol e 15 mg tablet Take 1 tablet every day by oral route. 01/22 completed Not Available Not Available Not Available divalproex ER 250 mg tablet,exte nded release 24 hr 08/10 completed Not Available Not Available Not Available cholecalcif carla (vitamin D3) 1,250 mcg (50,000 unit) capsule TAKE 1 CAPSULE BY MOUTH ONCE A WEEK active Not Available Not Available No t Available venlafaxine ER 75 mg tablet,exte nded release 24 hr Take 1 tablet every day by oral route. 01/22 completed Not Available Not Available Not Available Vitamin D3 50 mcg (2,000 unit) capsule Take 1 capsule every day by oral route for 90 days. 2023 active Not Available Not Available Not Avai lable testosteron e 20.25 mg/1.25 gram per pump act.(1.62 %) transdermal gel active Not Available Not Available Not Available Fluvirin 45 mcg (15 mcg x 3)/0.5 mL intramuscul ar suspension active Not Available Not Available N ot Available Jardiance 25 mg tablet Take 1 tablet by mouth once daily active Not Available Not Available No t Available Trulicity 1.5 mg/0.5 mL subcutaneou s pen injector Inject 1.5 mg every week by subcutane ous route. active Not Available Not Available No t Available Trulicity 0.75 mg/0.5 mL subcutaneou s pen injector INJECT 0.75 MG (0.5 ML) SUBCUTANE OUSLY ONCE A WEEK active Not Available Not Available No t Available Fluvirin 45 mcg (15 mcg x 3)/0.5 mL intramuscul ar suspension 01/08 completed Not Available Not Available Not Available Flucelvax Quad (PF) 60 mcg (15 mcg x 4)/0.5 mL IM syringe 10/12 completed Not Available Not Available Not Available Ozempic 0.25 mg or 0.5 mg (2 mg/1.5 mL) subcutaneou s pen injector Inject 0.25 mg every week by subcutane ous route. 05/14 completed Not Available Not Available Not Available Afluria Quad (PF) 60 mcg (15 mcg x 4)/0.5 mL IM syringe ADM 0.5ML IM UTD active Not Available Not Available No t Available ID NOW COVID-19 Test Kit TEST DIRECTED TODAY 05/23 completed Not Available Not Available Not Available Trulicity 3 mg/0.5 mL subcutaneou s pen injector Inject 3 mg every week by subcutane ous route. active Not Available Not Available No t Available Mounjaro 5 mg/0.5 mL subcutaneou s pen injector INJECT 5MG (0.5ML) SUBCUTANE OUSLY ONCE A WEEK active Not Available Not Available No t Available Ozempic 0.25 mg or 0.5 mg (2 mg/3 mL) subcutaneou s pen injector INJECT 0.25MG SUBCUTANE OUSLY ONCE A WEEK 02/24 completed Not Available Not Available Not Available Vitals Date Recorded Body height Body temperature Heart rate Oxygen saturation Oxygen saturation in Arterial blood by Pulse oximetry Systolic blood pressure Diastolic blood pressure Provider Name and Address Organization Details Last Updated DateTime 3 180.34 cm 97.8 [degF] 81 /min 98 % 98 % 136 mm[Hg] 80 mm[Hg] Kerri Khanna CMA [facility] [employer] 3 16:13:22 Date Recorded Body mass index (BMI) Body weight Provider Name and Address Organization Details Last Updated DateTime 08/22/2022 34.2 kg/m2 859235.13 g ROSAMARIA Franklin [address] [facility], [facility] [address], [place], [address], [facility] [employer] 08/22/2022 16:31:09 Date Recorded Body height Body mass index (BMI) Body weight Body temperature Heart rate Oxygen saturation Oxygen saturation in Arterial blood by Pulse oximetry Systolic blood pressure Diastolic blood pressure Provider Name and Address Organization Details Last Updated DateTime 4 180.34 cm 35.8 kg/m2 308133. 24 g 98.2 [degF] 86 /min 98 % 98 % 126 mm[Hg] 94 mm[Hg] Chanel Castellanos RN [facility] [employer] 4 12:20:51 Date Recorded Body height Provider Name an d Address Organization Details Last Updated DateTime 08/06/2023 180.34 cm Chen Moralez RN [facility] [employer] 08/06/2023 08:45:03 Date Recorded Body height Body mass index (BMI) Body weight Body temperature Heart rate Oxygen saturation Oxygen saturation in Arterial blood by Pulse oximetry Systolic blood pressure Diastolic blood pressure Provider Name and Address Organization Details Last Updated DateTime 4 180.34 cm 35.8 kg/m2 013361. 24 g 99 [degF] 89 /min 98 % 98 % 142 mm[Hg] 86 mm[Hg] Chanel Castellanos RN [facility] [employer] [facility] 4 15:13:24 Social History Question Answer Notes LastModified by Organizat ion Details LastModified Time Tobacco Smoking Status Never Smoker Suzie cardenas, [facility] [employer] [facility] 08/22/2022 15:58:55 What Is Your Level Of Alcohol Consumption? Occasional [id number] Information not available 07/02/2022 What Is Your Level Of Caffeine Consumption? Occasional [id number] Information not available 07/02/2022 In The 14 Days Before Symptom Onset, Have You Had Close Contact With A Laboratory-confir med COVID-19 While That Case Was Ill? No [email or web address] Information not available 08/22/2022 In The 14 Days Before Symptom Onset, Have You Had Close Contact With A Person Who Is Under Investigation For COVID-19 While That Person Was Ill? No [email or web address] Information not available 08/22/2022 What Type Of Diet Are You Following? REGULAR [id number] Information not available 07/02/2022 Have There Been Any Changes To Your Family Or Social Situation? No [email or web address] Information no t available 08/22/2022 Are There Any Guns Present In Your Home? No [email or web address] Information not available 08/22/2022 Do You Use Insect Repellent Routinely? Yes [email or web address] Information not available 08/22/2022 [facility] [email or web address] Information not available 08/22/2022 What Was The Date Of Your Most Recent Tobacco Screening? 12/10/2020 [email or web address] Information not available 08/22/2022 Do You Have Smoke And Carbon Monoxide Detectors In Your Home? Yes [email or web address] Information not available 08/22/2022 Are You Passively Exposed To Smoke? No [email or web address] Information no t available 08/22/2022 Are There Any Smokers In Your House? No [email or web address] Information not available 08/22/2022 Do You Feel Stressed (tense, Restless, Nervous, Or Anxious, Or Unable To Sleep At Night)? [id number] [email or web address] Information not available 08/22/2022 Do You Use Any Illicit Or Recreational Drugs? No [email or web address] Information not available 08/22/2022 Do You Use Sunscreen Routinely? Yes [email or web address] Information not available 08/22/2022 Have You Recently Traveled Abroad? No [email or web address] Information not available 08/22/2022 Do You Have Any Dietary Restrictions? No [email or web address] Information not available 08/22/2022 Do You Or Have You Ever Used Any Other Forms Of Tobacco Or Nicotine? No [email or web address] Information not available 08/22/2022 Sex: Unknown Functional Status Question Answer Note LastModified by Organizat ion Details LastModified Time What is your exercise level? Occasional [id number] Information not available 07/02/2022 Mental Status None recorded. Family History Relationship Description Onset Age of this Age Resolved Age Notes LastModified by Organization Details LastModified Time Maternal Grandmother Diabetes mellitus [id number] Not available 07/02/2022 16:57:32 Father No current problems or disability [email or web address] Not available 1 14:50:46 Mother No current problems or disability Not available 1 14:50:46 Medical History Condition Response HYPERTENSION Y Immunizations Vaccine Type Date Status Note Provider Nam e and Address Organization Details Recorded Time Influenza, MDCK, quadrivalent, PF 02/05/2018 completed Not Available [facility] 3 17:01:18 Influenza, MDCK, quadrivalent, PF 02/24/2020 completed Not Available [facility] 3 17:01:19 Past Encounters Encounter ID Performer Location Encounter Start Date Encounter Closed Date Diagnosis/Indication Diagnosis SNOMED-CT Code Diagnosis ICD10 Code Diagnosis Note [id number] Camryn Nunez MD [facility] [place] [address] [place] [address] 12/10/2020 00:00:00 12/10/2020 15:08:30 [id number] Camryn Nunez MD [facility] [place] [address] [place] [address] 12/28/2020 00:00:00 12/28/2020 14:08:12 [id number] ROSAMARIA Franklin [facility] [place] [address] [place] [address] 04/29/2021 00:00:00 04/29/2021 15:47:09 [id number] ROSAMARIA Franklin [facility] [place] [address] [place] [address] 06/17/2021 00:00:00 06/17/2021 14:41:48 [id number] ROSAMARIA Franklin [facility] [place] [address] [employer] [facility] [address] [place] [address] 09/16/2021 00:00:00 09/16/2021 09:01:57 [id number] ROSAMARIA Franklin [facility] [address] [place] [place] [address] 05/23/2022 00:00:00 05/23/2022 17:06:29 [id number] ROSAMARIA Franklin [facility] [address] [place] [address] 08/22/2022 15:56:55 08/22/2022 17:41:11 Diabetes mellitus 14654924 E11.9 (08/15/22) A1C 6.3, much improved.C ontinue metformin 1000mg qd and jardiance 25mg daily. He would like to try switching to ozempic to encourage weight loss, will d/c trulicity. Discussed healthy eating/exe rcise.Rech mara A1C in 3 months. [id number] Camryn Nunez MD [facility] [address] [place] [address] 08/05/2023 12:15:34 08/05/2023 13:06:34 Diabetes mellitus 59956031 E11.9 -chronic, stable-las t a1c 6.3 last august-[facility] blood sugars daily-curr ently using trulicity 0.75, jardiance and metformin- does not currently work out, educated-t cristino to monitor portion sizes, educated-l abs obtained-i ncreasing trulicity to 1.5mg Screening for disorder 880136126 Z13.9 -he is concerned for low test d/t feeling fatigued through the day-labs obtained [id number] Camryn Nunez MD [facility] [address] [place] [address] 08/06/2023 08:27:09 08/06/2023 08:51:12 [id number] ALFONZO Andino [facility] [address] [place] [address] 02/16/2024 14:47:27 02/16/2024 15:30:15 Testosterone level below reference range 837630395 R89.1 Vitamin D deficiency 347 56200 E55.9 Diabetes mellitus 420513 09 E11.9 increasing trulicity to 1.5days off included 26th and 27th missed work d/t symptoms, needing fmla paperwork filled outdizzine ss, increased urination, tired, fatigue [id number] ALFONZO Yun [facility] Jacque butts [address] [facility] [address] [place] [address] 02/24/2024 09:33:32 02/24/2024 11:32:47 Health Concerns Section Related Observation LastModified by Organization Detai ls LastModified Time None Recorded Concern Status LastModified by Organization Details LastModified Time None Recorded Advance Directives Directive None Recorded Payers Encounter Date Sequence Insurance Name Policy Number Policy Adorno Covered Member ID Adorno Member ID Guarantor Name 08/22/2022 1 [facility] [id number] Manpreet L Jones [id number] Willi D Jones 08/05/2023 1 [facility] [id number] Manpreet L Jones [id number] Willi D Jones 08/06/2023 1 [facility] [id number] Manpreet L Jones [id number] Willi D Jones 02/16/2024 1 [facility] [id number] Manpreet L Jones [id number] Willi D Jones 02/24/2024 1 [facility] [id number] Manpreet L Jones [id number] Willi D Jones Notes Date Note Type Note Provider Name and Address Organization Details Recorded Time 08/22/2022 text/html Pt. here to follow-up on diabetes. ROSAMARIA Franklin [address] [employer] [address] [address], [place], [address], [employer] [facility] [employer] 08/22/2022 16:53:35 08/05/2023 text/html pt is here for f/u on diabetes ALFONZO Andino [address] [employer] [address] [address], [place], [address], [employer] 08/05/2023 12:57:01 02/16/2024 text/html pt is here for f/u ALFONZO Andino [address] [employer] [address] [address], [place], [address], [place] [facility] 02/16/2024 15:48:20
--- OUTSIDE RECORDS SUMMARY | 2024-09-09 08:28 | XMS_ITS | Clinical Summary ---
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 Gender Identity Not on file Sexual Orientation Not on file Obstetrics History Last Filed Vital Signs Vital Sign Reading Time Taken Comments Blood Pressure 126/76 05/06/2022 6:19 PM LAYOUT WORKER Pulse 102 05/06/2022 6:19 PM LAYOUT WORKER Temperature 36.8 C (98.3 F) 05/06/2022 6:19 PM LAYOUT WORKER Respiratory Rate 16 05/06/2022 6:19 PM LAYOUT WORKER Oxygen Saturation 98% 05/06/2022 6:19 PM LAYOUT WORKER Inhaled Oxygen Concentration - - Weight 114.7 kg (252 lb 12.8 oz) 05/06/2022 6:19 PM LAYOUT WORKER Height 180.3 cm (5' 11 ) 05/06/2022 6:19 PM LAYOUT WORKER Body Mass Index 35.26 05/06/2022 6:19 PM LAYOUT WORKER Plan of Treatment Health Maintenance Due Date Last Done Comments Depression Screening 1980 Hepatitis C Screening 1980 Varicella Vaccines (1 of 2 - 13+ 2-dose series) 1993 Hepatitis B Screening 1998 Regular Well Visit/Exam 18-64 1998 Covid-19 Vaccine (3 - season) 2024 06/14/2021, 07/09/2020 Influenza Vaccine (Season Ended) 2025 03/04/2021, 02/24/2020, 02/24/2020, Additional history exists DTaP/Tdap/Td Vaccine (3 - Td or Tdap) 12/22/2030 12/22/2020, 07/30/2013 HPV Vaccines Aged Out No longer eligi ble based on patient's age to complete this topic Pneumococcal vaccine <65 Aged Out No longer eligible based on patient's age to complete this topic Insurance [facility] [employer] [facility] [facility] [facility] [employer] Care Teams Ring Packer Relationship Specialty Start Date End Date Camryn Nunez MD [address] [place] [address] [address] PCP - General Family Medicine 05/06/22
[2024-09-09 08:33] VITALS: BP 127/83; PULSE 79; RESP 16; TEMP 36.4; O2SAT 99
--- NOTE | 2024-09-09 08:50 | ED.EAR ---
HPI - Ear Problem General Chief complaint: Ear Stated complaint: left ear ache Time Seen by Provider: 09/09/24 08:50 Source: patient and RN notes reviewed Mode of arrival: ambulatory Limitations: no limitations History of Present Illness HPI Narrative: 43-year-old male presents with concern for left ear pain for 1 and half weeks. Reports he saw dentist on Thursday because he thought it was dental pain, he did have a filling. Reports that did not improve his ear pain. Reports the pain shoots down towards discharge occasionally. He denies sinus congestion, pain, pressure. He denies cough. For drainage from the ear. MD Complaint: ear pain Related Data Allergies Allergy/AdvReac Type Severity Reaction Status Date / Time No Known Allergies Allergy Unverified 09/09/24 08:35 Review of Systems Review of Systems: CONSTITUTIONAL: Denies malaise, chills, sweats, or fever. EYES: Denies visual changes, redness, or discharge. ENT: Denies rhinorrhea, congestion, sinus pain, and sore throat. Reports left ear pain CARDIOVASCULAR: Denies chest pain, palpitations, or edema. RESPIRATORY: Denies cough. Denies dyspnea. GASTROINTESTINAL: Denies abdominal pain, nausea, vomiting, diarrhea SKIN: Denies rash or itching. MUSCULOSKELETAL: Denies myalgia. NEUROLOGIC: Denies headache. All systems reviewed & are unremarkable except as noted in HPI and below PMFSH Past Medical History Medical History (Updated 09/09/24 @ 08:54 by Paula James NP) HTN (hypertension) Diabetes Family History Family History Father History of ETOH abuse Grandparent Diabetes mellitus Hypertension Cancer Grandparent History of ETOH abuse Cancer Hypertension Social History Social History (Updated 02/25/24 @ 09:42 by Melissa Dean MA) Smoking status: Never smoker Additional smoking assessment comments: Does not currently smoke Alcohol use details: Does not use ETOH Substance use type: does not use Do You Feel Safe in your Home?: Yes Lack of Transportation: No Lack of Food: Never True Current Housing: I Have Housing Concerned About Future Housing: No Difficulty Paying Gas/Electric Bills: No Difficulty Paying for Meds: No Currently Unemployed: No Education: Associate Degree Difficulty w/ Childcare or Family Care: No Living arrangements: with family Additional living arrangements comments: Employed [employer] Gender identity (if verbalized by the patient): Male Agree to blood products: Yes Comments At time of signature, agree with nursing past medical, surgical, social and family history. There is no relevant family history pertinent to the presenting complaint Exam Narrative: GENERAL: Well-appearing, well-nourished, and in no acute distress. HEAD: Normocephalic EYES: PERRLA, conjunctivae clear ENT: Nares clear, turbinates edematous, clear discharge. Mucous membranes moist. TM pearly dukes with dull light reflex on the left, sharp on the right; no tragal tenderness. Oropharynx not erythematous without lesions. Tonsils not enlarged and without exudate, no drooling, no hoarseness, no trismus, uvula midline. NECK: Supple. No lymphadenopathy CHEST: Clear to auscultation, breath sounds equal. No wheezing, rhonchi, rales, or stridor. No respiratory distress, speaks in full sentences. HEART: Regular rate and rhythm. No murmur heard. SKIN: Warm, dry, no rash. NEURO: Alert and oriented x3. PSYCH: Normal mood and affect Course Course Emergency Course: Patient is aware of diagnosis, understands and agrees to treatment plan. Anticipatory guidance given. Patient agrees to follow-up as directed and is aware of reasons to seek care at the emergency department. Portions of this record may have been created with voice recognition software Level of Care: [facility] Visit Vital Signs Vital signs: Vital Signs Temperature 97.6 F 09/09/24 08:33 Pulse Rate 79 09/09/24 08:33 Respiratory Rate 16 09/09/24 08:33 Blood Pressure 127/83 09/09/24 08:33 Pulse Oximetry 99 09/09/24 08:33 Oxygen Delivery Room Air 09/09/24 08:33 Temperature 97.6 F 09/09/24 08:33 Pulse Rate 79 09/09/24 08:33 Respiratory Rate 16 09/09/24 08:33 Blood Pressure 127/83 09/09/24 08:33 Pulse Oximetry 99 09/09/24 08:33 Oxygen Delivery Room Air 09/09/24 08:33 Reviewed. Medical Decision Making MDM Narrative Medical decision making narrative: I evaluated this in the [facility]. History is obtained from patient who is an independent historian and physical exam was performed.? Available medical records were reviewed. ? Exam findings and relevant testing show no acute concerns or changes; patient is non-toxic appearing and is in no distress. Differential diagnosis considered: Nassar virus, strep pharyngitis, allergic rhinitis, upper respiratory tract infection, sinusitis, rhinosinusitis, nasopharyngitis. viral pharyngitis, otitis media, otitis externa, otitis effusion, cerumen impaction, foreign body. Exam findings show no acute concerns or changes; patient is non-toxic appearing and is in no distress. Patient is appropriate for outpatient treatment and follow-up. ? Differential diagnosis and treatment plan were discussed with the patient. Patient agrees with discussion and after shared medical decision making agrees with plan of care. All questions were answered to the patient's satisfaction. Patient is appropriate for outpatient treatment and follow-up. Vital Signs Vital Signs: Vital Signs Temperature 97.6 F 09/09/24 08:33 Pulse Rate 79 09/09/24 08:33 Respiratory Rate 16 09/09/24 08:33 Blood Pressure 127/83 09/09/24 08:33 Pulse Oximetry 99 09/09/24 08:33 Oxygen Delivery Room Air 09/09/24 08:33 Temperature 97.6 F 09/09/24 08:33 Pulse Rate 79 09/09/24 08:33 Respiratory Rate 16 09/09/24 08:33 Blood Pressure 127/83 09/09/24 08:33 Pulse Oximetry 99 09/09/24 08:33 Oxygen Delivery Room Air 09/09/24 08:33 Critical Care Time Critical Care Time Critical Care Time: No Discharge Plan Discharge Clinical Impression: Fluid level behind tympanic membrane of left ear Patient Disposition: Home Condition: Stable Instructions: Fluid In The Ear (Serous Otitis Media) (ED) Additional Instructions: Recommend antihistamine such as Benadryl at night time and Zyrtec or Bel during the day until symptoms improve Flonase nasal spray, 2 sprays in each nostril once daily until symptoms improve Also, recommend symptomatic treatment includes: rest, fluids, and increase humidity of the air at home. Recommend Acetaminophen as directed on the bottle to reduce pain Please schedule a follow-up visit with your personal physician for further evaluation and treatment within 3-5days. If your symptoms persist, change or worsen significantly before you can contact your personal physician then please, without delay, go to the emergency department for further evaluation. Patient Language: Gibraltarian Prescriptions: New pseudoephedrine HCl [12 Hour Decongestant] 120 mg tablet extended release 120 mg PO Q12H PRN (Reason: nasal congestion) Qty: 20 0RF fluconazole 150 mg tablet 150 mg PO Q48H 3 Days Qty: 2 0RF Rx Instructions: take one dose now, and a second dose if symptoms remain in 48 hours No Action atorvastatin 40 mg tablet 40 mg PO DAILY Qty: 90 3RF Jardiance 25 mg tablet 25 mg PO DAILY Qty: 90 3RF losartan 50 mg tablet 50 mg PO DAILY Qty: 90 3RF Mounjaro 15 mg/0.5 mL pen injector 15 mg subcut WEEKLY Qty: 2 6RF Follow-up/Referrals: Gabriella Montgomery APRN [Primary Care Provider] - Time of Disposition: 08:55
== END 2024-09-09 09:00 | disposition home or self-care (01) ==
PROVIDERS: Emergency Provider Nurse Practitioner; PCP Nurse Practitioner Adult Health
DX: H73.892 Other specified disorders of tympanic membrane, left ear (principal); I10 Essential (primary) hypertension; E11.9 Type 2 diabetes mellitus without complications; Z79.84 Long term (current) use of oral hypoglycemic drugs; Z79.85 Long-term (current) use of injectable non-insulin antidiabetic drugs
CPT/HCPCS: 99213; G0463

== ENCOUNTER 2024-11-15 10:33 | Outpatient (CLI) | payer OTHER, SELFPAY ==
--- NOTE | ~2024-11-15 | US_ITS ---
EXAMINATION: US soft tissue chest DATE: 11/15/2024 10:50 INDICATION: enlarged xyphoid process . TECHNIQUE: Grayscale and Doppler ultrasound images of the chest were obtained. COMPARISON: X-ray chest 06/23/2022. FINDINGS: The area of clinical concern was sonographically interrogated revealing no solid or cystic mass. IMPRESSION: No sonographic abnormality in the area of clinical concern. Reviewed, dictated and finalized at location K.
== END 2024-11-15 10:34 | disposition home or self-care (01) ==
LOC: MICIMG 10:33
PROVIDERS: PCP Nurse Practitioner Adult Health; Visit Provider Nurse Practitioner Adult Health
DX: R22.2 Localized swelling, mass and lump, trunk (principal)
CPT/HCPCS: 76604

== ENCOUNTER 2024-11-30 09:18 | Outpatient (CLI) | payer OTHER, SELFPAY ==
--- OUTSIDE RECORDS SUMMARY | 2024-11-30 09:36 | XMS_ITS | Clinical Summary ---
Author Organization [facility] Address [address] [place] [address] Phone Care Team Providers Care Inking Machine Tender Name Role Phone Camryn Nunez MD [...] 1:44 PM CDT Height 180.3 cm (5' 11) 12/22/2020 1:44 PM CDT Body Mass Index 35.01 12/22/2020 1:44 PM CDT Plan of Treatment Health Maintenance Due Date Last Done Comments HPV VACCINES (1 - Male 3-dose series) 12/05/1995 HEPATITIS B VACCINES (1 of 3 - 19+ 3-dose series) 12/05/1999 INFLUENZA VACCINE (#1) 2024 02/24/2020, 2017 DTAP/TDAP/TD VACCINES (3 - Td or Tdap) 12/22/2030, 07/30/2013 Insurance [facility] [employer] Care Teams Inking Machine Tender Relationship Specialty Start Date End Date Camryn Nunez MD [address] [place] [address] [place] [address] PCP - General Family Practice 12/22/20
--- OUTSIDE RECORDS SUMMARY | 2024-11-30 09:37 | XMS_ITS | Clinical Summary ---
Author Organization [facility] Address [address] [place] [address] Phone Care Team Providers Care Split Leather Department Supervisor Name Role Phone Camryn Nunez MD Primary [...] Virus (HCV) Screening 1980 TdaP Immunization 1980 Human Papillomavirus (HPV) Immunization (1 - Male 3-dose series) 12/05/1995 Hepatitis B Immunization (1 of 3 - 19+ 3-dose series) 12/05/1999 SARS-COV-2 Immunization ( season) 2024 Influenza Immunization (#1) 2025 Respiratory Syncytial Virus (RSV) Immunization (Adult) (1 - 1-dose 75+ series) 12/05/2055 Meningococcal Immunization (ACWY) Aged Out No longer eligible based on patient's age to complete this topic Pneumococcal Immunization Combined Aged Out No longer eligible based on patient's age to complete this topic Rotavirus Immunization Aged Out No lo nger eligible based on patient's age to complete this topic Insurance [facility] Care Teams Split Leather Department Supervisor Relationship Specialty Start Date End Date Camryn Nunez MD [address] [place] [id number] PCP - General Family Medicine 04/26/15
--- OUTSIDE RECORDS SUMMARY | 2024-11-30 09:37 | XMS_ITS | Clinical Summary ---
Author Organization [address] lt Address 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 Gender Identity Not on file Sexual Orientation Not on file Obstetrics History Last Filed Vital Signs Vital Sign Reading Time Taken Comments Blood Pressure 126/76 05/06/2022 6:19 PM TRAINING MANAGER Pulse 102 05/06/2022 6:19 PM TRAINING MANAGER Temperature 36.8 C (98.3 F) 05/06/2022 6:19 PM TRAINING MANAGER Respiratory Rate 16 05/06/2022 6:19 PM TRAINING MANAGER Oxygen Saturation 98% 05/06/2022 6:19 PM TRAINING MANAGER Inhaled Oxygen Concentration - - Weight 114.7 kg (252 lb 12.8 oz) 05/06/2022 6:19 PM TRAINING MANAGER Height 180.3 cm (5' 11) 05/06/2022 6:19 PM TRAINING MANAGER Body Mass Index 35.26 05/06/2022 6:19 PM TRAINING MANAGER Plan of Treatment Health Maintenance Due Date Last Done Comments Depression Screening 1980 Hepatitis C Screening 1980 Varicella Vaccines (1 of 2 - 13+ 2-dose series) 1993 Hepatitis B Screening 1998 Regular Well Visit/Exam 18-64 1998 HPV Vaccines (1 - 3-dose SCDM series) 12/05/2007 Covid-19 Vaccine (3 - season) 2024 06/14/2021, 07/09/2020 Influenza Vaccine (#1) 2025 , 02/24/2020, 02/24/2020, Additional history exists DTaP/Tdap/Td Vaccine (3 - Td or Tdap) 12/22/2030 12/22/2020, 07/30/2013 Pneumococcal vaccine <65 Aged Out No longer eligible based on patient's age to complete this topic Insurance * Guarantor: Willi Harman Account Type Relation to Patient Date of Phone Billing Address Personal/Family Self 1980 [address] [place] [address] [facility] EM[employer] [facility] H[employer]/PPO Address: [facility] [address] [place] [address] [facility] [employer] [employer] [facility] HMO/PPO Address: [address] [address] Care Teams Penology Teacher Relationship Specialty Start Date End Date Camryn Nunez MD [address] [place] [address] [address] PCP - General Family Medicine 05/06/22
--- OUTSIDE RECORDS SUMMARY | 2024-11-30 09:37 | XMS_ITS | Clinical Summary ---
Author Organization [facility] Address [address] [place] [place] [address] Care Team Providers Care Anthropologist Physical Name Role Phone Cesar Wagoner MD Primary Care Provider [phone] Source Comments [facility],non-owned Affiliates and Associated Physician Practices is amultiple site organization consisting of ambulatory clinics and hospital sitesin [place], [place], [place] and [place]. This disclosure is being madepursuant to the Care Everywhere program and may not contain all information available regarding this patient. Last updated 18.[facility] Monthlys Allergies No known active allergies Medications * [...] of 3 - 19+ 3-dose series) 12/05/1999 HPV VACCINE (1 - 3-dose SCDM series) 12/05/2007 DTAP/TDAP/TD VACCINES (2 - T d or Tdap) 07/31/2023 07/30/2013 COVID-19 VACCINE (1 - 2023-2 5 season) 2024 DEPRESSION SCREENING 05/04/2024 INFLUENZA VACCINE (#1) 2025 ZOSTER VACCINE (1 of 2) 2030 [...] patient's age to complete this topic Insurance [employer] Care Teams Anthropologist Physical Relationship Specialty Start Date End Date Cesar Wagoner MD [address] [place] [address] PCP - General Family Medicine 07/30/13
--- OUTSIDE RECORDS SUMMARY | 2024-11-30 09:37 | XMS_ITS | Referral Summary ---
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 Gender Identity Not on file Sexual Orientation Not on file Last Filed Vital Signs Vital Sign Reading Time Taken Comments Blood Pressure 126/76 05/06/2022 6:19 PM PRESS TENDER Pulse 102 05/06/2022 6:19 PM PRESS TENDER Temperature 36.8 C (98.3 F) 05/06/2022 6:19 PM PRESS TENDER Respiratory Rate 16 05/06/2022 6:19 PM PRESS TENDER Oxygen Saturation 98% 05/06/2022 6:19 PM PRESS TENDER Inhaled Oxygen Concentration - - Weight 114.7 kg (252 lb 12.8 oz) 05/06/2022 6:19 PM PRESS TENDER Height 180.3 cm (5' 11) 05/06/2022 6:19 PM PRESS TENDER Body Mass Index 35.26 05/06/2022 6:19 PM PRESS TENDER Plan of Treatment Not on file Insurance [facility] [employer] [facility] HMO/PPO Address: [place] [id number] [place] [id number] [facility] [employer] [facility] HMO/PPO Address: [facility] [address] [place] [phone] Care Teams Senior Management Consultant Relationship Specialty Start Date End Date Camryn Nunez MD [address] [place] [address] [address] [place] [address] PCP - General Family Medicine 05/06/22
[2024-11-30 20:09] LABS: Alanine Aminotransferase 25 U/L (6-50); Albumin Level 4.3 g/dL (3.5-5.1); Alkaline Phosphatase 76 U/L (38-126); Anion Gap 4 mmol/L (4-12); Aspartate Amino Transferase 43 U/L (17-59); Bilirubin,Total 0.7 mg/dL (0.2-1.3); Blood Urea Nitrogen 15 mg/dL (9-20); Calcium 9.2 mg/dL (8.4-10.2); Carbon Dioxide 26 mmol/L (22-30); Chloride 105 mmol/L (98-107); Cholesterol 186 mg/dL (0-200); Estimated Glomerular Filt Rate > 60; Glucose 92 mg/dL (65-110); HDL Direct 48 mg/dL; Potassium 4.3 mmol/L (3.4-5.0); Sodium 135 mmol/L (137-145); Total Protein 7.5 g/dL (6.3-8.2); Triglycerides 219 mg/dL (<150)
[2024-11-30 20:31] LABS: MALB Creatinine Ratio 4.4 mg/g (0-30)
[2024-11-30 20:38] LABS: Hemoglobin A1C 5.8 % (<5.7)
== END 2024-11-30 09:19 | disposition home or self-care (01) ==
LOC: ANHBWCLAB 09:19
PROVIDERS: PCP Nurse Practitioner Adult Health; Visit Provider Nurse Practitioner Adult Health
DX: E11.9 Type 2 diabetes mellitus without complications (principal); E55.9 Vitamin D deficiency, unspecified
CPT/HCPCS: 36415; 80053; 80061; 82043; 82306; 82565; 83036